=== PATIENT | female | born 1960 | race Two or more races ===

== ENCOUNTER 2020-10-11 22:34 | Emergency (ER) | payer OTHER ==
[~2020-10-11] VITALS: Ht 160 cm; Wt 85.7 kg
[2020-10-11 23:10] LABS: Basophils # (auto) 0.1 10 ^3/uL (0-0.2); Basophils % (auto) 0.8 % (0.0-2.0); Eosinophils # (auto) 0.5 10 ^3/uL (0-0.8); Eosinophils % (auto) 4.7 % (0.0-7.0); Hematocrit 44.1 % (36.0-46.0); Hemoglobin 15.4 g/dL (12.2-16.2); Lymphocytes # (auto) 4.3 10 ^3/uL (0.4-5.4); Lymphocytes % (auto) 39.8 % (10.0-50.0); Mean Corpuscular Hemoglobin 29.9 pg (28.0-32.0); Mean Corpuscular Hgb Conc. 34.8 g/dL (32.0-36.0); Mean Corpuscular Volume 85.9 fL (80.0-100.0); Monocytes # (auto) 0.7 10 ^3/uL (0-1.3); Monocytes % (auto) 6.7 % (0.0-12.0); Neutrophils # (auto) 5.2 10 ^3/uL (1.6-8.6); Nucleated Red Blood Cells % 0.2 %; Platelet Count (auto) 277 10^3/uL (140-450); Red Blood Cells 5.14 10^6/uL (4.0-5.20); Red Cell Distribution Width 14.2 % (11.8-14.3); White Blood Cell 10.9 10^3/uL (4.4-10.8)
[2020-10-11 23:28] LABS: Albumin 3.4 g/dL (3.4-5.0); Anion Gap 8 (5-15); BUN/Creatinine Ratio 20.2; Blood Urea Nitrogen 19 mg/dL (7-18); Calcium 8.7 mg/dL (8.5-10.1); Carbon Dioxide 25 mmol/L (21-32); Chloride 105 mmol/L (98-107); GFR African American 78 mL/min; GFR Non-African American 65 mL/min; Glucose 99 mg/dL (74-106); Sodium 138 mmol/L (136-145)
[2020-10-11 23:33] LABS: Alanine Aminotransferase 38 U/L (13-56); Alkaline Phosphatase 104 U/L (45-117); Aspartate Aminotransferase 26 U/L (15-37); Bilirubin, Total 0.3 mg/dL (0.2-1.0); Total Protein 8.7 g/dL (6.4-8.2)
[2020-10-12 08:27] VITALS: BP 140/93
== END 2020-10-12 08:29 | disposition home or self-care (01) ==
LOC: ER 22:34
DX: R07.89 Other chest pain (principal); R59.1 Generalized enlarged lymph nodes; Q89.2 Congenital malformations of other endocrine glands; I10 Essential (primary) hypertension; F12.10 Cannabis abuse, uncomplicated
CPT/HCPCS: 36415; 70490; 80053; 83880; 84443; 84484; 85025; 93005